=== PATIENT | male | born 1965 | race Caucasian/White ===

== ENCOUNTER → 2017-02-04 | Day surgery (SDC) | payer OTHER ==
[~2017-02-04] VITALS: Ht 180.3 cm; Wt 113.6 kg
[~2017-02-04] MED LIST: ACETAMINOPHEN 1000 MG/100 ML 100 ML IV ONE; ACETAMINOPHEN 1000 MG/100 ML 100 ML IV SCH; ASPI81TA23 PO; BUPIVACAINE/EPINEPHRINE 0.25% PF 30 ML VIAL ONE; BUPIVACAINE/EPINEPHRINE 0.5% PF 30 ML VIAL ONE; BUPR150CR PO; CHLORHEXIDINE GLUCONATE 2 % 1 PACK (2 CLOTHS) TOPICAL PRN; CIAL20TA PO; CLAR10CA3 PO; CLON0.5T PO; HYDR-3583 PO; KETOROLAC TROMETHAMINE 30 MG/ML (IVP) VIAL ONE; LACTATED RINGER'S 1000 ML IV PRN; LIDOCAINE 1%/EPINEPHrine 1:100,000 SOLN 50 ML VIAL ONE; METOPROLOL TARTRATE 25 MG TAB PO PRN; MULT1TAB46 PO; POVIDONE IODINE 5% (ANTISEPSIS KIT) 4 APPLICATIONS EACH NARE PRN; SIMV80TA PO; SODIUM CHLORID 0.9% 500 ML IV PRN; ceFAZolin 2 GM PREMIX 50 ML IV SCH; ceFAZolin 2 GM PREMIX 50 ML ONE
[2017-02-04 14:45] VITALS: PULSE 61
[2017-02-04 16:20] VITALS: BP 122/83; PULSE 82; RESP 16; TEMP 97.4; O2SAT 97
--- NOTE | 2017-02-05 07:05 | MP ---
cc: OZ COLÓN DATE OF SURGERY 02/04/2017 PREOPERATIVE DIAGNOSIS Chronic cholecystitis, cholelithiasis. POSTOPERATIVE DIAGNOSIS Chronic cholecystitis, cholelithiasis. PROCEDURE Laparoscopic cholecystectomy. SURGEON Aki. ANESTHESIA General endotracheal. OPERATIVE FINDINGS The patient was found to have a chronically diseased appearing, slightly thick-walled gallbladder, with adhesions along most of its length. The cystic duct and common bile duct were seen to be of normal caliber. No other abnormalities were noted. OPERATIVE PROCEDURE The patient was brought to the operating room and after satisfactory general endotracheal anesthesia was obtained, the abdomen was prepped and draped in the usual sterile fashion. 0.5% Marcaine with epinephrine was used to infiltrate the skin for local anesthesia. A small incision was made just above the umbilicus and a 5 mm trocar was inserted into the peritoneal cavity under direct visualization. The abdomen was then distended to 15 mmHg using carbon dioxide after which the camera was reinserted and visceral injury inspected for, with none being identified. Under direct visualization a 12 port and a 5 port were placed in the upper abdomen. The fundus of the gallbladder was identified, grasped and retracted superiorly over the right lobe of the liver. There were adhesions along the entire length as noted above and these were taken down by blunt dissection as well as using the Harmonic scalpel for hemostasis. As the Lester's pouch area of the gallbladder was cleared of adhesions it was grasped and retracted inferiorly and laterally, placing tension on the hepatoduodenal ligament. The cystic duct and cystic artery were both dissected free bluntly without problem to obtain the critical view. Once the critical view had been obtained, the cystic duct was divided with the Harmonic scalpel near its junction with the gallbladder. The cystic artery was then divided also with the Harmonic scalpel near its junction with the gallbladder. The gallbladder was then dissected free from the liver bed using the Harmonic scalpel. It is placed within an EndoCatch bag and brought through the upper midline incision where it was emptied of its bile and withdrawn without problem. The trocar was reinserted and the liver bed inspected and found to be hemostatic. Irrigation was carried out and hemostasis again checked for and found to be satisfactory. The cystic duct and cystic artery stumps were both inspected and found to be intact with no leakage of bile or blood. The carbon dioxide was then vented as completely as possible to the atmosphere after which the ports were removed and the skin closed with interrupted 4-0 PDS subcuticular stitches. Steri-Strips were applied. The patient was then awakened and taken from the operating room, in satisfactory condition, having tolerated the procedure without problem. Estimated blood loss was less than 15 mL. The instrument, sponge and needle counts were reported as being correct x2 at the end of the procedure. MD KELVIN Tolliver/ARTURO /2:22 PM /6:45 AM
== END | disposition home or self-care (01) ==
LOC: PHSDC 08:50
PROVIDERS: ATTEND Surgery
DX: K80.10 Calculus of gallbladder with chronic cholecystitis without obstruction (principal)
CPT/HCPCS: 00790; 47562; 88304; J0131; J0690; J1885; J7120